=== PATIENT | male | born 1965 | race Caucasian/White ===

== ENCOUNTER → 2016-12-22 | Day surgery (SDC) | payer OTHER, SELFPAY ==
--- NOTE | ~2016-12-22 | HP ---
ADMIT: 12/22/2016 RM/LOC: [facility] MR#: [id number] [address] [address] SERA MARKHAM [address] [place], [place] [id number] Pre-OP History and Physical SEX: M AGE: 51 : 1965 DATE OF SERVICE: 12/22/2016 HISTORY OF PRESENT ILLNESS: The patient is a 51-year-old male, who has had a long-term issues with reflux, has off and on dysphasic complaints for quite some time. He used to take Nexium, stopped taking it about a year ago. Does get frequent heartburn. He has never had upper endoscopy or any work done in this area for him or any type of workup. He was eating, I believe some lettuce with some ham and is unable to tolerate his own saliva. PAST SURGICAL HISTORY: Include left inguinal hernia repair by Dr. Myers. He has had trauma to his right arm and had surgery on that in the past. PAST MEDICAL HISTORY: He has a negative past medical history other than chronic reflux disease. MEDICATIONS: Takes no scheduled medications. ALLERGIES: HE HAS NO KNOWN ALLERGIES, ALTHOUGH HE DID STATE HE USED TO BE ALLERGIC TO DARVON. SOCIAL HISTORY: He is a nondrinker, nonsmoker. FAMILY HISTORY: Noncontributory. REVIEW OF SYSTEMS: No headaches. No chest pain. No shortness of breath. No extremity complaints. No hematologic, neurologic, or psychiatric issues. PHYSICAL EXAMINATION: VITAL SIGNS: He is afebrile. Vitals stable. HEART: Regular. LUNGS: Clear. ABDOMEN: Soft, nondistended, nontender. EXTREMITIES: No peripheral edema. NEUROLOGY: No focal neurologic deficits. ASSESSMENT AND PLAN: The patient is a 51-year-old with long-term heartburn with frequent dysphagia complaints, on no antacid coverage, who now has a food foreign body. Presents for upper endoscopy evaluation and foreign body removal. Risk of esophageal perforation were discussed with the patient and his , they wished to proceed. Dallas Martinez MD/ joshua JOB #: [id number] CC: Dallas Martinez, Attending Physician Dallas Martinez, Family Physician
--- NOTE | 2016-12-27 15:21 | ER ---
ADMIT: 12/22/2016 RM/LOC: [facility] MR#: [id number] [address] [address] ESRA MARKHAM [address] [place] [address] Emergency Room Report SEX: M AGE: 51 : 1965 DATE: 12/22/2016 He drove himself to the ER even though he said he was unable to swallow. He is vomiting up straight saliva. His vitals within normal limits. He is allergic to Darvon. He says that he ate a salad today that he had put some ham on, so he thinks he might have choked on some meat. He has had issues like this before. 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 At this point, we are going to try and see if he can swallow. Otherwise, we have ordered a CT of the neck for evaluation of foreign body. Jasmin Melendrez will follow up on the disposition of this patient. BRAN Aleman / Maynor Blackman MD / joshua JOB #: [id number] CC: Dallas Martinez MD, Attending Physician Dallas Martinez MD, Family Physician
--- NOTE | 2017-01-22 08:51 | OR ---
ADMIT: 12/22/2016 RM/LOC: [facility] MR#: [id number] [address] [address] SERA MARKHAM [address] [place] [address] Operative/Delivery Room Report SEX: M AGE: 51 : 1965 SURGERY DATE: 12/22/2016 SURGEON: Dallas Martinez MD PREPROCEDURE DIAGNOSIS: Esophageal food foreign body. POSTPROCEDURE DIAGNOSES: 1. Esophageal food foreign body. 2. A 3 cm type 1 sliding hiatal hernia. 3. Distal esophagitis. PROCEDURE: EGD with foreign body removal. 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 FINDINGS: The patient was taken to the endoscopy suite. IV sedation was given. He was placed in the left lateral decubitus position. A bite block was placed in the patient's mouth. The gastroscope was introduced down to oropharynx, down the esophagus, where there was initially some saliva that was suctioned out immediately. At the base of his esophagus, there was a large non-chewed piece of broccoli with its stock. I was able to gently move beyond the esophageal wall the broccoli and pushed into the stomach without complicating features. There was noted to be [id number] distal esophagitis. There was a distal esophageal ring, but it was nonobstructive. I passed the gastroscope through the pylorus into a normal duodenum. The stomach was normal and again noted the 3 cm type 1 sliding hiatal hernia. Remainder of the esophagus was normal. The gastroscope was removed. The patient tolerated the procedure without difficulty, transferred to recovery room in good condition. Dallas Martinez MD/ joshua JOB #: [id number] CC: Dallas Martinez, Attending Physician Dallas Martinez, Family Physician
== END | disposition home or self-care (01) ==
LOC: ER 19:48 → SSS 22:00
PROC: 0DC58ZZ Extirpation of Matter from Esophagus, Via Natural or Artificial Opening Endoscopic (ICD-10-PCS; principal; 2016-12-22)
DX: T18.128A Food in esophagus causing other injury, initial encounter (principal); K44.9 Diaphragmatic hernia without obstruction or gangrene; K20.9 Esophagitis, unspecified; Z98.890 Other specified postprocedural states; K21.9 Gastro-esophageal reflux disease without esophagitis; E66.9 Obesity, unspecified; Z88.8 Allergy status to other drugs, medicaments and biological substances